=== PATIENT | male | born 1945 | race Caucasian/White ===

== ENCOUNTER 2019-01-23 19:19 | Emergency (ER) | payer MEDICARE, OTHER, SELFPAY ==
[2019-01-23 19:26] VITALS: BP 151/75; PULSE 90; RESP 18; TEMP 37.1; O2SAT 91
--- NOTE | 2019-01-23 19:27 | DI.CT.S_ITS ---
PROCEDURE: CT ANGIO CHEST PE PROTOCOL INDICATIONS: syncope, hx pe TECHNIQUE: After the administration of intravenous contrast, 2 mm thick sections acquired from the pulmonary apices to the posterior costophrenic angles. 3-dimensional maximum intensity projection (MIP) coronal and sagittal reformats were then acquired through the thorax. For radiation dose reduction, the following was used: automated exposure control, adjustment of mA and/or kV according to patient size. COMPARISON: None. FINDINGS: Image quality: Excellent. Pulmonary arteries: Pulmonary arteries are normal in size, and demonstrate no intraluminal filling defects to suggest central pulmonary embolism. Lungs and pleura: There is a masslike density in the extreme right lung base with questionably spiculated margins extending to the pleural surface measuring approximately 3.0 x 1.1 cm on image 4/5. It may potentially represent a tiny focal infiltrate or scarring. A small neoplasm is not excluded. Lungs are otherwise clear. No pleural effusions or pneumothorax. Central and peripheral airways are patent. Mediastinum: Heart size is normal, without pericardial effusion. No mediastinal or hilar adenopathy. Thoracic aorta is normal in caliber and enhancement. Esophagus is normal in caliber, without hiatal hernia. Bones and chest wall: No suspicious bony lesions. Ribs and thoracic spine appear intact throughout. Thyroid gland is unremarkable the. No axillary or supraclavicular adenopathy. Abdomen: Visualized upper abdominal solid organs appear normal in the early arterial phase of enhancement. Multiple large left renal cysts, the largest of which measures 10 cm. IMPRESSION: 1. No evidence of pulmonary emboli. 2. 3.0 x 1.1 cm masslike density in the extreme right lung base. Findings may represent scarring versus small focal infiltrate. A small neoplasm is not excluded. Comment: If possible, comparison with a prior chest CT would be helpful. If not, short interval followup CT, and approximately 2 or 3 months is suggested. If the lesion remains at that time, PET/CT may be indicated. Dictated by: Tyrone Rose M.D. on 01/23/2019 at 20:33 Approved by: Tyrone Rose M.D. on 01/23/2019 at 20:39
--- NOTE | 2019-01-23 19:30 | DI.CT.S_ITS ---
PROCEDURE: CT HEAD/BRAIN WO CON INDICATIONS: syncope TECHNIQUE: Noncontrast 4.5 mm thick angled axial sections acquired from the foramen magnum to the vertex, with coronal and sagittal reformats. For radiation dose reduction, the following was used: automated exposure control, adjustment of mA and/or kV according to patient size. COMPARISON: None. FINDINGS: Image quality: Excellent. CSF spaces: Basal cisterns are patent. No extra-axial fluid collections. Ventricles are normal in size and shape. Brain: No midline shift. No intracranial masses or hemorrhage. Ansari-white matter interface is normal. Skull and face: Calvarium and visualized facial bones are intact, without suspicious lesions. Sinuses: Visualized sinuses and mastoids are clear. IMPRESSION: Negative head CT with no evidence of acute stroke, hemorrhage, or mass. Dictated by: Tyrone Rose M.D. on 01/23/2019 at 20:32 Approved by: Tyrone Rose M.D. on 01/23/2019 at 20:32
[2019-01-23 19:40] LABS: Add Manual Diff / Slide Review NO; Basophils Absolute Auto 0 /uL (0-100); Basophils Percent Auto 0.4 % (0-2); Eosinophils Absolute Auto 100 /uL (0-450); Eosinophils Percent Auto 1.3 % (2-4); Hematocrit 44.7 % (41-53); Hemoglobin 15.2 g/dL (13.5-17.5); Lymphocytes Absolute Auto 1100 /uL (1100-4500); Lymphocytes Percent Auto 13.9 % (25-40); Mean Corpuscular Hemoglobin 31.5 PG (26-34); Mean Corpuscular Volume 92.5 fL (80-100); Monocytes Absolute Auto 700 /uL (0-900); Monocytes Percent Auto 8.7 % (3-14); Neutrophils Absolute Auto 5800 /uL (1500-7000); Neutrophils Percent Auto 75.7 % (50-75); Platelet Count 195 X10^3/uL (150-400); Red Blood Cell Count 4.83 X10^6/uL (4.5-5.9); Red Cell Distribution Width 12.6 % (11.6-14.8); White Blood Cell Count 7.6 X10^3/uL (4.5-11.0)
[2019-01-23] MEDS: SODIUM CHLORIDE 0.9% 1,000 ML 1000 ML IV (19:46)
[2019-01-23 19:56] LABS: Alanine Aminotransferase 23 IU/L (21-72); Albumin 4.2 g/dL (3.5-5.0); Albumin Globulin Ratio 1.6 (1.0-2.8); Alkaline Phosphatase 49 U/L (38-126); Aspartate Aminotransferase 35 IU/L (17-59); BUN Creatinine Ratio 14.5 (6-22); Bilirubin Total 1.1 mg/dL (0.2-1.3); Blood Urea Nitrogen 16 mg/dL (9-20); Calcium 9.7 mg/dL (8.4-10.2); Carbon Dioxide 26 mmol/L (22-32); Chloride 106 mmol/L (98-107); Creatine Kinase 219 U/L (55-170); Estimated Glomerular Filt Rate > 60.0 mL/min (>60); Globulin 2.6 g/dL (1.7-4.1); Glucose 94 mg/dL (80-110); HEMOLYSIS < 15 (0-50); Potassium 4.3 mmol/L (3.4-5.1); Sodium 142 mmol/L (137-145); Total Protein 6.8 g/dL (6.3-8.2)
[2019-01-23 20:08] LABS: B Type Natriuretic Peptide < 100 (<100); Troponin I < 0.012 ng/mL (0.01-0.034)
[2019-01-23 20:11] LABS: Creatine Kinase MB 2.23 ng/mL (<2.37)
[2019-01-23 20:23] LABS: Ethanol (ETOH) 47 mg/dL
--- NOTE | 2019-01-23 20:29 | ED.SYNCOPE ---
HPI - Syncope <JASMIN Odonnell - Last Filed: 01/23/19 21:04> General Chief Complaint: Syncope Stated Complaint: R leg cramp,passed out at dinner Time Seen by Provider: 01/23/19 19:21 Source: patient and family Mode of arrival: ambulatory Limitations: no limitations History of Present Illness HPI narrative: The patient is a 73-year-old male former smoker with history of PE who presents after having a syncopal event during dinner. His witnessed it and states he was out for at least 30 seconds. He states that just prior to this he had a right hamstring cramp, stood up and felt better. He denies any chest pain, shortness of breath, fever, abdominal pain nausea vomiting or diarrhea. He denies any weakness or incontinence. He states that he has been working on his boat all day in the sun without drinking water, but did have a few beers with dinner. Related Data Home Medications Medication Instructions Recorded Confirmed aspirin 81 mg PO DAILY 01/23/19 01/23/19 atorvastatin 20 mg PO DAILY 01/23/19 01/23/19 Allergies Allergy/AdvReac Type Severity Reaction Status Date / Time erythromycin base Allergy Intermediate Rash Verified 01/23/19 19:30 Review of Systems <JASMIN Odonnell - Last Filed: 01/23/19 21:04> Review of Systems GENERAL: Denies chills, fatigue, malaise, fever, sweats. HEENT: Denies sinus pain, ear pain, sore throat, difficulty swallowing, dizziness. RESPIRATORY: Denies dyspnea, cough, wheezing, hemoptysis, sputum. CARDIOVASCULAR: See HPI GASTROINTESTINAL: Denies nausea, vomiting, abdominal pain, diarrhea, constipation, melena. : Denies dysuria, frequency, incontinence, hematuria, urinary retention. MUSCULOSKELETAL: denies weakness, joint pain, or bony pain SKIN: Denies rash, skin lesions, or other NEUROLOGIC: See HPI PSYCHIATRIC: No concerning psychosocial issues. 12 point review of systems is negative except for those stated above PFSH <JASMIN Odonnell - Last Filed: 01/23/19 21:04> Medical History DVT (deep venous thrombosis) (Acute) High cholesterol (Acute) (Acute) Pulmonary embolism (Acute) Social History Smoking Status: Former smoker Social History Smoking Status: Former smoker Exam <JASMIN Odonnell - Last Filed: 01/23/19 21:04> Narrative Exam Narrative: GENERAL: pleasant gentleman lying on stretcher in no acute distress HEAD: Atraumatic. Normocephalic. No temporal or scalp tenderness. EYES: Pupils equal round and reactive. Extraocular motions intact. No scleral icterus. No injection or drainage. ENT: Nose without bleeding, purulent drainage or septal hematoma. Throat without erythema, tonsillar hypertrophy or exudate. Uvula midline. Airway patent. NECK: Trachea midline. No JVD or lymphadenopathy. Supple, nontender, no meningeal signs. CARDIOVASCULAR: Regular rate and rhythm without murmurs, gallops, or rubs. RESPIRATORY: Clear to auscultation. Breath sounds equal bilaterally. No wheezes, rales, or rhonchi. No cough. No increased respiratory effort. GASTROINTESTINAL: Abdomen soft, non-tender, nondistended. No hepato-splenomegaly, or palpable masses. No guarding. EXTREMITIES: No clubbing, cyanosis, or edema. No joint tenderness, effusion, or edema noted. BACK: Nontender without deformity or crepitance. No flank tenderness. NEURO: AOx3. Strength is equal upper and lower extremities bilaterally. Stable gait. No gross cranial nerve deficit. SKIN: No rash or erythema. Initial Vital Signs Initial Vital Signs: Vital Signs Temperature 98.8 F 01/23/19 19:26 Pulse Rate 90 01/23/19 19:26 Respiratory Rate 18 01/23/19 19:26 Blood Pressure 151/75 H 01/23/19 19:26 Pulse Oximetry 91 01/23/19 19:26 <Sergo Peña DO - Last Filed: 01/24/19 00:15> Initial Vital Signs Initial Vital Signs: Vital Signs Temperature 98.8 F 01/23/19 19:26 Pulse Rate 90 01/23/19 19:26 Respiratory Rate 18 01/23/19 19:26 Blood Pressure 151/75 H 01/23/19 19:26 Pulse Oximetry 91 01/23/19 19:26 Course <JASMIN Odonnell - Last Filed: 01/23/19 21:04> Orders Ordered: ED Orders 01/23/19 19:27 CT angio chest PE protocol Stat EKG-12 Lead Stat 01/23/19 19:30 CT head/brain wo con Stat B Type Natriuretic Peptide Stat Complete Blood Count AUTO DIFF Stat Comprehensive Metabolic Panel Stat Ethanol (ETOH) Stat Troponin & CK Cardiac Panel Stat Discontinued Medications Sodium Chloride (Normal Saline 0.9%) 1,000 mls @ 1,000 mls/hr IV BOLUS ONE Stop: 01/23/19 20:26 Last Infusion: 01/23/19 21:02 Dose: 0 mls/hr Admin: 01/23/19 19:46 Dose: 1,000 mls/hr Vital Signs - 8 hr 01/23/19 19:26 01/23/19 20:44 Temperature 98.8 F Pulse Rate 90 68 Respiratory Rate 18 19 Blood Pressure 151/75 H Blood Pressure [Left Arm] 126/61 Pulse Oximetry 91 94 <Sergo Peña DO - Last Filed: 01/24/19 00:15> Orders Ordered: ED Orders 01/23/19 19:27 CT angio chest PE protocol Stat EKG-12 Lead Stat 01/23/19 19:30 CT head/brain wo con Stat B Type Natriuretic Peptide Stat Complete Blood Count AUTO DIFF Stat Comprehensive Metabolic Panel Stat Ethanol (ETOH) Stat Troponin & CK Cardiac Panel Stat Discontinued Medications Sodium Chloride (Normal Saline 0.9%) 1,000 mls @ 1,000 mls/hr IV BOLUS ONE Stop: 01/23/19 20:26 Last Infusion: 01/23/19 21:02 Dose: 0 mls/hr Admin: 01/23/19 19:46 Dose: 1,000 mls/hr Vital Signs - 8 hr 01/23/19 19:26 01/23/19 20:44 Temperature 98.8 F Pulse Rate 90 68 Respiratory Rate 18 19 Blood Pressure 151/75 H Blood Pressure [Left Arm] 126/61 Pulse Oximetry 91 94 MDM - Syncope <JASMIN Odonnell - Last Filed: 01/23/19 21:04> Lab Data Result diagrams: 01/23/19 19:30 01/23/19 19:30 Lab Results 01/23/19 01/23/19 01/23/19 Range/Units 19:30 19:30 19:30 WBC 7.6 (4.5-11.0) X10^3/uL RBC 4.83 (4.5-5.9) X10^6/uL Hgb 15.2 (13.5-17.5) g/dL Hct 44.7 (41-53) % MCV 92.5 (80-100) fL MCH 31.5 (26-34) PG MCHC 34.0 (30-36) % RDW 12.6 (11.6-14.8) % Plt Count 195 (150-400) X10^3/uL Neut % (Auto) 75.7 H (50-75) % Lymph % (Auto) 13.9 L (25-40) % [place] % (Auto) 8.7 (3-14) % Eos % (Auto) 1.3 L (2-4) % Baso % (Auto) 0.4 (0-2) % Neut # (Auto) 5800 (1613-0364) /uL Lymph # (Auto) 1100 (7730-8693) /uL [place] # (Auto) 700 (0-900) /uL Eos # (Auto) 100 (0-450) /uL Baso # (Auto) 0 (0-100) /uL Sodium 142 (137-145) mmol/L Potassium 4.3 (3.4-5.1) mmol/L Chloride 106 (98-107) mmol/L Carbon Dioxide 26 (22-32) mmol/L BUN 16 (9-20) mg/dL Creatinine 1.10 (0.66-1.25) mg/dL Estimated GFR > 60.0 (>60) mL/min BUN/Creatinine Ratio 14.5 (6-22) Glucose 94 (80-110) mg/dL Calcium 9.7 (8.4-10.2) mg/dL Total Bilirubin 1.1 (0.2-1.3) mg/dL AST 35 (17-59) IU/L ALT 23 (21-72) IU/L Alkaline Phosphatase 49 (38-126) U/L Total Creatine Kinase 219 H (55-170) U/L CK-MB (CK-2) 2.23 (<2.37) ng/mL CK-MB (CK-2) Rel Index 1.0 L (1.5-5.0) % Troponin I < 0.012 (0.01-0.034) ng/mL B-Natriuretic Peptide < 100 (<100) Total Protein 6.8 (6.3-8.2) g/dL Albumin 4.2 (3.5-5.0) g/dL Globulin 2.6 (1.7-4.1) g/dL Albumin/Globulin Ratio 1.6 (1.0-2.8) Ethyl Alcohol 47 mg/dL Imaging Data CT scan - head: Radiologist's impression: [address] [address] [address] Scan Report Signed Patient: Milton Root R#: [id number] : 1945cct:[id number] Age/Sex: 73 / MDate of Service: 01/23/19 Loc: ED Accession Number: [id number] Procedure: CT head/brain wo con Ordering Provider: Macie Xavier PROCEDURE: CT HEAD/BRAIN WO CON INDICATIONS: syncope TECHNIQUE: Noncontrast 4.5 mm thick angled axial sections acquired from the foramen magnum to the vertex, with coronal and sagittal reformats. For radiation dose reduction, the following was used: automated exposure control, adjustment of mA and/or kV according to patient size. COMPARISON: None. FINDINGS: Image quality: Excellent. CSF spaces: Basal cisterns are patent. No extra-axial fluid collections. Ventricles are normal in size and shape. Brain: No midline shift. No intracranial masses or hemorrhage. Ansari-white matter interface is normal. Skull and face: Calvarium and visualized facial bones are intact, without suspicious lesions. Sinuses: Visualized sinuses and mastoids are clear. IMPRESSION: Negative head CT with no evidence of acute stroke, hemorrhage, or mass. Dictated by: Tyrone Rose M.D. on 01/23/2019 at 20:32 Approved by: Tyrone Rose M.D. on 01/23/2019 at 20:32 CTPA: Radiologist's impression: 3 JASMIN Odonnell Find Patient Imaging Milton Root 73 M 1945 ACTIVITY DATE EXAM STATUS AUTHOR 01/23/19 19:30 Signed Tyrone Rose 01/23/19 19:27 Signed Tyrone Rose [address] [address] [address] Scan Report Signed Patient: Milton Root R#: [id number] : 7Acct:[id number] Age/Sex: 73 / MDate of Service: 01/23/19 Loc: ED Accession Number: [id number] Procedure: CT angio chest PE protocol Ordering Provider: Macie Xavier [facility] PROCEDURE: CT ANGIO CHEST PE PROTOCOL INDICATIONS: syncope, hx pe TECHNIQUE: After the administration of intravenous contrast, 2 mm thick sections acquired from the pulmonary apices to the posterior costophrenic angles. 3-dimensional maximum intensity projection (MIP) coronal and sagittal reformats were then acquired through the thorax. For radiation dose reduction, the following was used: automated exposure control, adjustment of mA and/or kV according to patient size. COMPARISON: None. FINDINGS: Image quality: Excellent. Pulmonary arteries: Pulmonary arteries are normal in size, and demonstrate no intraluminal filling defects to suggest central pulmonary embolism. Lungs and pleura: There is a masslike density in the extreme right lung base with questionably spiculated margins extending to the pleural surface measuring approximately 3.0 x 1.1 cm on image 4/5. It may potentially represent a tiny focal infiltrate or scarring. A small neoplasm is not excluded. Lungs are otherwise clear. No pleural effusions or pneumothorax. Central and peripheral airways are patent. Mediastinum: Heart size is normal, without pericardial effusion. No mediastinal or hilar adenopathy. Thoracic aorta is normal in caliber and enhancement. Esophagus is normal in caliber, without hiatal hernia. Bones and chest wall: No suspicious bony lesions. Ribs and thoracic spine appear intact throughout. Thyroid gland is unremarkable the. No axillary or supraclavicular adenopathy. Abdomen: Visualized upper abdominal solid organs appear normal in the early arterial phase of enhancement. Multiple large left renal cysts, the largest of which measures 10 cm. IMPRESSION: 1. No evidence of pulmonary emboli. 2. 3.0 x 1.1 cm masslike density in the extreme right lung base. Findings may represent scarring versus small focal infiltrate. A small neoplasm is not excluded. Comment: If possible, comparison with a prior chest CT would be helpful. If not, short interval followup CT, and approximately 2 or 3 months is suggested. If the lesion remains at that time, PET/CT may be indicated. Dictated by: Tyrone Rose M.D. on 01/23/2019 at 20:33 Approved by: Tyrone Rose M.D. on 01/23/2019 at 20:39 ECG Data Interpretation: Sinus rhythm. Ventricular rate 72. No ectopy noted. No ST elevation or depression noted. First-degree AV block noted pr 227 MDM Narrative Medical decision making narrative: The patient is a 73-year-old male who presents with a chief complaint of syncope during dinner. He denies any complaint upon arrival to the emergency department. He has a negative troponin, normal EKG, normal head CT. Given his history of a PE, I obtained a CT PA which does not show blood clot. It does show concern for mass or scarring in the right lower lobe, which the patient is already aware of. He states that this is scarring from his previous PE. He was given IV fluids. For after his initial negative troponin, he requested to go home. I discussed that I usually do a 2nd troponin in order to fully rule out a cardiac event. The patient states that he is willing to take this risk and does not want to wait for a 2nd troponin. I discussed at length coming back to the emergency department for chest pain, shortness of breath, concern of heart attack or stroke or repeat syncope and the patient stated understanding. The patient states understanding that I cannot fully rule out a heart attack or serious cardiac event. He states he will follow up with his PCP when he was home. Discussed coming back to the ER if needed.n <Sergo Peña, DO - Last Filed: 01/24/19 00:15> Lab Data Lab Results 01/23/19 01/23/19 01/23/19 Range/Units 19:30 19:30 19:30 WBC 7.6 (4.5-11.0) X10^3/uL RBC 4.83 (4.5-5.9) X10^6/uL Hgb 15.2 (13.5-17.5) g/dL Hct 44.7 (41-53) % MCV 92.5 (80-100) fL MCH 31.5 (26-34) PG MCHC 34.0 (30-36) % RDW 12.6 (11.6-14.8) % Plt Count 195 (150-400) X10^3/uL Neut % (Auto) 75.7 H (50-75) % Lymph % (Auto) 13.9 L (25-40) % [place] % (Auto) 8.7 (3-14) % Eos % (Auto) 1.3 L (2-4) % Baso % (Auto) 0.4 (0-2) % Neut # (Auto) 5800 (0228-9475) /uL Lymph # (Auto) 1100 (4554-5814) /uL [place] # (Auto) 700 (0-900) /uL Eos # (Auto) 100 (0-450) /uL Baso # (Auto) 0 (0-100) /uL Sodium 142 (137-145) mmol/L Potassium 4.3 (3.4-5.1) mmol/L Chloride 106 (98-107) mmol/L Carbon Dioxide 26 (22-32) mmol/L BUN 16 (9-20) mg/dL Creatinine 1.10 (0.66-1.25) mg/dL Estimated GFR > 60.0 (>60) mL/min BUN/Creatinine Ratio 14.5 (6-22) Glucose 94 (80-110) mg/dL Calcium 9.7 (8.4-10.2) mg/dL Total Bilirubin 1.1 (0.2-1.3) mg/dL AST 35 (17-59) IU/L ALT 23 (21-72) IU/L Alkaline Phosphatase 49 (38-126) U/L Total Creatine Kinase 219 H (55-170) U/L CK-MB (CK-2) 2.23 (<2.37) ng/mL CK-MB (CK-2) Rel Index 1.0 L (1.5-5.0) % Troponin I < 0.012 (0.01-0.034) ng/mL B-Natriuretic Peptide < 100 (<100) Total Protein 6.8 (6.3-8.2) g/dL Albumin 4.2 (3.5-5.0) g/dL Globulin 2.6 (1.7-4.1) g/dL Albumin/Globulin Ratio 1.6 (1.0-2.8) Ethyl Alcohol 47 mg/dL Discharge Plan Departure Patient Disposition: Home Clinical Impression: Syncope Qualifiers: Syncope type: unspecified Qualified Code(s): R55 - Syncope and collapse Discharge Date/Time: 06/12/19 21:09 Interventions: ED Discharge Assessment Last Done: 01/23/19 21:08 Instructions: DI for Syncope in Adults (Fainting) Activity Restrictions/Additional Instructions: Your workup today came back negative for any pulmonary embolism. You have elected to leave prior to year 2nd set of lab work being done, and therefore understand that I cannot fully rule out a cardiac event. Please come back to the emergency department for any acute concerns such as chest pain, shortness of breath repeat syncope. Please rest and push fluids. Please follow up with your primary care provider. Prescriptions: No Action atorvastatin 20 mg tablet 20 mg PO DAILY RF: 0 aspirin 81 mg Tablet,Chewable 81 mg PO DAILY RF: 0 <Sergo Peña DO - Last Filed: 01/24/19 00:15> [facility] Attending Ирина Attestation: I was immediately available in the department for consultation. Documentation has been reviewed. I agree with assessment and plan.
--- NOTE | 2019-01-23 20:32 | ED_ITS ---
HPI - Syncope <JASMIN Odonnell - Last Filed: 01/23/19 21:04> General Chief Complaint: Syncope Stated Complaint: R leg cramp,passed out at dinner Time Seen by Provider: 01/23/19 19:21 Source: patient and family Mode of arrival: ambulatory Limitations: no limitations History of Present Illness HPI narrative: The patient is a 73-year-old male former smoker with history of PE who presents after having a syncopal event during dinner. His witnessed it and states he was out for at least 30 seconds. He states that just prior to this he had a right hamstring cramp, stood up and felt better. He denies any chest pain, shortness of breath, fever, abdominal pain nausea vomiting or d iarrhea. He denies any weakness or incontinence. He states that he has been working on his boat all day in the sun without drinking water, but did have a few beers with dinner. Related Data Home Medications Medication Instructions Recorded Confirmed aspirin 81 mg PO DAILY 01/23/19 01/23/19 atorvastatin 20 mg PO DAILY 01/23/19 01/23/19 Allergies Allergy/AdvReac Type Severity Reaction Status Date / Time erythromycin base Allergy Intermediate Rash Verified 01/23/19 19:30 Review of Systems <JASMIN Odonnell - Last Filed: 01/23/19 21:04> Review of Systems GENERAL: Denies chills, fatigue, malaise, fever, sweats. HEENT: Denies sinus pain, ear pain, sore throat, difficulty swallowing, dizzine ss. RESPIRATORY: Denies dyspnea, cough, wheezing, hemoptysis, sputum. CARDIOVASCULAR: See HPI GASTROINTESTINAL: Denies nausea, vomiting, abdominal pain, diarrhea, constipation, melena. : Denies dysuria, frequency, incontinence, hematuria, urinary retention. MUSCULOSKELETAL: denies weakness, joint pain, or bony pain SKIN: Denies rash, skin lesions, or other NEUROLOGIC: See HPI PSYCHIATRIC: No concerning psychosocial issues. 12 point review of systems is negative except for those stated above PFSH <JASMIN Odonnell - Last Filed: 01/23/19 21:04> Medical History DVT (deep venous thrombosis) (Acute) High cholesterol (Acute) (Acute) Pulmonary embolism (Acute) Social History Smoking Status: Former smoker Social History Smoking Status: Former smoker Exam <JASMIN Odonnell - Last Filed: 01/23/19 21:04> Narrative Exam Narrative: GENERAL: pleasant gentleman lying on stretcher in no acute distress HEAD: Atraumatic. Normocephalic. No temporal or scalp tenderness. EYES: Pupils equal round and reactive. Extraocular motions intact. No scleral icterus. No injection or drainage. ENT: Nose without bleeding, purulent drainage or septal hematoma. Throat without erythema, tonsillar hypertrophy or exudate. Uvula midline. Airway patent. NECK: Trachea midline. No JVD or lymphadenopathy. Supple, nontender, no meningeal signs. CARDIOVASCULAR: Regular rate and rhythm without murmurs, gallops, or rubs. RESPIRATORY: Clear to auscultation. Breath sounds equal bilaterally. No wheezes, rales, or rhonchi. No cough. No increased respiratory effort. GASTROINTESTINAL: Abdomen soft, non-tender, nondistended. No hepato-sp lenomegaly, or palpable masses. No guarding. EXTREMITIES: No clubbing, cyanosis, or edema. No joint tenderness, effusion, or edema noted. BACK: Nontender without deformity or crepitance. No flank tenderness. NEURO: AOx3. Strength is equal upper and lower extremities bilaterally. Stable gait. No gross cranial nerve deficit. SKIN: No rash or erythema. Initial Vital Signs Initial Vital Signs: Vital Signs Temperature 98.8 F 01/23/19 19:26 Pulse Rate 90 01/23/19 19:26 Respiratory Rate 18 01/23/19 19:26 Blood Pressure 151/75 H 01/23/19 19:26 Pulse Oximetry 91 01/23/19 19:26 <Sergo Peña DO - Last Filed: 01/24/19 00:15> Initial Vital Signs Initial Vital Signs: Vital Signs Temperature 98.8 F 01/23/19 19:26 Pulse Rate 90 01/23/19 19:26 Respiratory Rate 18 01/23/19 19:26 Blood Pressure 151/75 H 01/23/19 19:26 Pulse Oximetry 91 01/23/19 19:26 Course <JASMIN Odonnell - Last Filed: 01/23/19 21:04> Orders Ordered: ED Orders 01/23/19 19:27 CT angio chest PE protocol Stat EKG-12 Lead Stat 01/23/19 19:30 CT head/brain wo con Stat B Type Natriuretic Peptide Stat Complete Blood Count AUTO DIFF Stat Comprehensive Metabolic Panel Stat Ethanol (ETOH) Stat Troponin & CK Cardiac Panel Stat Discontinued Medications Sodium Chloride (Normal Saline 0.9%) 1,000 mls @ 1,000 mls/hr IV BOLUS ONE Stop: 01/23/19 20:26 Last Infusion: 01/23/19 21:02 Dose: 0 mls/hr Admin: 01/23/19 19:46 Dose: 1,000 mls/hr Vital Signs - 8 hr 01/23/19 19:26 01/23/19 20:44 Temperature 98.8 F Pulse Rate 90 68 Respiratory Rate 18 19 Blood Pressure 151/75 H Blood Pressure [Left Arm] 126/61 Pulse Oximetry 91 94 <Sergo Peña DO - Last Filed: 01/24/19 00:15> Orders Ordered: ED Orders 01/23/19 19:27 CT angio chest PE protocol Stat EKG-12 Lead Stat 01/23/19 19:30 CT head/brain wo con Stat B Type Natriuretic Peptide Stat Complete Blood Count AUTO DIFF Stat Comprehensive Metabolic Panel Stat Ethanol (ETOH) Stat Troponin & CK Cardiac Panel Stat Discontinued Medications Sodium Chloride (Normal Saline 0.9%) 1,000 mls @ 1,000 mls/hr IV BOLUS ONE Stop: 01/23/19 20:26 Last Infusion: 01/23/19 21:02 Dose: 0 mls/hr Admin: 01/23/19 19:46 Dose: 1,000 mls/hr Vital Signs - 8 hr 01/23/19 19:26 01/23/19 20:44 Temperature 98.8 F Pulse Rate 90 68 Respiratory Rate 18 19 Blood Pressure 151/75 H Blood Pressure [Left Arm] 126/61 Pulse Oximetry 91 94 MDM - Syncope <JASMIN Odonnell - Last Filed: 01/23/19 21:04> Lab Data Result diagrams: 01/23/19 19:30 01/23/19 19:30 Lab Results 01/23/19 01/23/19 01/23/19 Range/Units 19:30 19:30 19:30 WBC 7.6 (4.5-11.0) X10^3/uL RBC 4.83 (4.5-5.9) X10^6/uL Hgb 15.2 (13.5-17.5) g/dL Hct 44.7 (41-53) % MCV 92.5 (80-100) fL MCH 31.5 (26-34) PG MCHC 34.0 (30-36) % RDW 12.6 (11.6-14.8) % Plt Count 195 (150-400) X10^3/uL Neut % (Auto) 75.7 H (50-75) % Lymph % (Auto) 13.9 L (25-40) % Winston % (Auto) 8.7 (3-14) % Eos % (Auto) 1.3 L (2-4) % Baso % (Auto) 0.4 (0-2) % Neut # (Auto) 5800 (7455-2256) /uL Lymph # (Auto) 1100 (1788-9346) /uL Winston # (Auto) 700 (0-900) /uL Eos # (Auto) 100 (0-450) /uL Baso # (Auto) 0 (0-100) /uL Sodium 142 (137-145) mmol/L Potassium 4.3 (3.4-5.1) mmol/L Chloride 106 (98-107) mmol/L Carbon Dioxide 26 (22-32) mmol/L BUN 16 (9-20) mg/dL Creatinine 1.10 (0.66-1.25) mg/dL Estimated GFR > 60.0 (>60) mL/min BUN/Creatinine Ratio 14.5 (6-22) Glucose 94 (80-110) mg/dL Calcium 9.7 (8.4-10.2) mg/dL Total Bilirubin 1.1 (0.2-1.3) mg/dL AST 35 (17-59) IU/L ALT 23 (21-72) IU/L Alkaline Phosphatase 49 (38-126) U/L Total Creatine Kinase 219 H (55-170) U/L CK-MB (CK-2) 2.23 (<2.37) ng/mL CK-MB (CK-2) Rel Index 1.0 L (1.5-5.0) % Troponin I < 0.012 (0.01-0.034) ng/mL B-Natriuretic Peptide < 100 (<100) Total Protein 6.8 (6.3-8.2) g/dL Albumin 4.2 (3.5-5.0) g/dL Globulin 2.6 (1.7-4.1) g/dL Albumin/Globulin Ratio 1.6 (1.0-2.8) Ethyl Alcohol 47 mg/dL Imaging Data CT scan - head: Radiologist's impression: [address] [address] [address] Scan Report Signed Patient: Milton Root R#: [id number] : 1945cct:[id number] Age/Sex: 73 / MDate of Service: 01/23/19 Loc: ED Accession Number: [id number] Procedure: CT head/brain wo con Ordering Provider: Macie Xavier PROCEDURE: CT HEAD/BRAIN WO CON INDICATIONS: syncope TECHNIQUE: Noncontrast 4.5 mm thick angled axial sections acquired from the foramen magnum to the vertex, with coronal and sagittal reformats. For radiation dose reduction, the following was used: automated exposure control, adjustment of mA and/or kV according to patient size. COMPARISON: None. FINDINGS: Image quality: Excellent. CSF spaces: Basal cisterns are patent. No extra-axial fluid collections. Ventricles are normal in size and shape. Brain: No midline shift. No intracranial masses or hemorrhage. Ansari-white matter interface is normal. Skull and face: Calvarium and visualized facial bones are intact, without suspicious lesions. Sinuses: Visualized sinuses and mastoids are clear. IMPRESSION: Negative head CT with no evidence of acute stroke, hemorrhage, or mass. Dictated by: Tyrone Rose M.D. on 01/23/2019 at 20:32 Approved by: Tyrone Rose M.D. on 01/23/2019 at 20:32 CTPA: Radiologist's impression: 3 JASMIN Odonnell Find Patient Imaging Milton Root 73 M 1945 ACTIVITY DATE EXAM STATUS AUTHOR 01/23/19 19:30 Signed Tyrone Rose 01/23/19 19:27 Signed Tyrone Rose [address] [address] [address] Scan Report Signed Patient: Milton Root R#: [id number] : 7Acct:[id number] Age/Sex: 73 / MDate of Service: 01/23/19 Loc: ED Accession Number: [id number] Procedure: CT angio chest PE protocol Ordering Provider: Macie Xavier [facility] PROCEDURE: CT ANGIO CHEST PE PROTOCOL INDICATIONS: syncope, hx pe TECHNIQUE: After the administration of intravenous contrast, 2 mm thick sections acquired from the pulmonary apices to the posterior costophrenic angles. 3-dimensional maximum intensity projection (MIP) coronal and sagittal reformats were then acquired through the thorax. For radiation dose reduction, the following was used: automated exposure control, adjustment of mA and/or kV according to patient size. COMPARISON: None. FINDINGS: Image quality: Excellent. Pulmonary arteries: Pulmonary arteries are normal in size, and demonstrate no intraluminal filling defects to suggest central pulmonary embolism. Lungs and pleura: There is a masslike density in the extreme right lung base with questionably spiculated margins extending to the pleural surface measuring approximately 3.0 x 1.1 cm on image 4/5. It may potentially represent a tiny focal infiltrate or scarring. A small neoplasm is not excluded. Lungs are otherwise clear. No pleural effusions or pneumothorax. Central and peripheral airways are patent. Mediastinum: Heart size is normal, without pericardial effusion. No mediastinal or hilar adenopathy. Thoracic aorta is normal in caliber and enhancement. Esophagus is normal in caliber, without hiatal hernia. Bones and chest wall: No suspicious bony lesions. Ribs and thoracic spine appear intact throughout. Thyroid gland is unremarkable the. No axillary or supraclavicular adenopathy. Abdomen: Visualized upper abdominal solid organs appear normal in the early arterial phase of enhancement. Multiple large left renal cysts, the largest of which measures 10 cm. IMPRESSION: 1. No evidence of pulmonary emboli. 2. 3.0 x 1.1 cm masslike density in the extreme right lung base. Findings may represent scarring versus small focal infiltrate. A small neoplasm is not excluded. Comment: If possible, comparison with a prior chest CT would be helpful. If not, short interval followup CT, and approximately 2 or 3 months is suggested. If the lesion remains at that time, PET/CT may be indicated. Dictated by: Tyrone Rose M.D. on 01/23/2019 at 20:33 Approved by: Tyrone Rose M.D. on 01/23/2019 at 20:39 ECG Data Interpretation: Sinus rhythm. Ventricular rate 72. No ectopy noted. No ST elevation or depression noted. First-degree AV block noted pr 227 MDM Narrative Medical decision making narrative: The patient is a 73-year-old male who presents with a chief complaint of syncope during dinner. He denies any complaint upon arrival to the emergency department. He has a negative troponin, normal EKG, normal head CT. Given his history of a PE, I obtained a CT PA which does not show blood clot. It does show concern for mass or scarring in the right lower lobe, which the patient is already aware of. He states that this is scarring from his previous PE. He was given IV fluids. For after his initial negative troponin, he requested to go home. I discussed that I usually do a 2nd troponin in order to fully rule out a cardiac event. The patient states that he is willing to take this risk and does not want to wait for a 2nd troponin. I discussed at length coming back to the emergency department for chest pain, shortness of breath, concern of heart attack or stroke or repeat syncope and the patient stated understanding. The patient states understanding that I cannot fully rule out a heart attack or serious cardiac event. He states he will follow up with his PCP when he was home. Discussed coming back to the ER if needed.n <Sergo Peña, DO - Last Filed: 01/24/19 00:15> Lab Data Lab Results 01/23/19 01/23/19 01/23/19 Range/Units 19:30 19:30 19:30 WBC 7.6 (4.5-11.0) X10^3/uL RBC 4.83 (4.5-5.9) X10^6/uL Hgb 15.2 (13.5-17.5) g/dL Hct 44.7 (41-53) % MCV 92.5 (80-100) fL MCH 31.5 (26-34) PG MCHC 34.0 (30-36) % RDW 12.6 (11.6-14.8) % Plt Count 195 (150-400) X10^3/uL Neut % (Auto) 75.7 H (50-75) % Lymph % (Auto) 13.9 L (25-40) % Winston % (Auto) 8.7 (3-14) % Eos % (Auto) 1.3 L (2-4) % Baso % (Auto) 0.4 (0-2) % Neut # (Auto) 5800 (2022-6263) /uL Lymph # (Auto) 1100 (5325-0452) /uL Winston # (Auto) 700 (0-900) /uL Eos # (Auto) 100 (0-450) /uL Baso # (Auto) 0 (0-100) /uL Sodium 142 (137-145) mmol/L Potassium 4.3 (3.4-5.1) mmol/L Chloride 106 (98-107) mmol/L Carbon Dioxide 26 (22-32) mmol/L BUN 16 (9-20) mg/dL Creatinine 1.10 (0.66-1.25) mg/dL Estimated GFR > 60.0 (>60) mL/min BUN/Creatinine Ratio 14.5 (6-22) Glucose 94 (80-110) mg/dL Calcium 9.7 (8.4-10.2) mg/dL Total Bilirubin 1.1 (0.2-1.3) mg/dL AST 35 (17-59) IU/L ALT 23 (21-72) IU/L Alkaline Phosphatase 49 (38-126) U/L Total Creatine Kinase 219 H (55-170) U/L CK-MB (CK-2) 2.23 (<2.37) ng/mL CK-MB (CK-2) Rel Index 1.0 L (1.5-5.0) % Troponin I < 0.012 (0.01-0.034) ng/mL B-Natriuretic Peptide < 100 (<100) Total Protein 6.8 (6.3-8.2) g/dL Albumin 4.2 (3.5-5.0) g/dL Globulin 2.6 (1.7-4.1) g/dL Albumin/Globulin Ratio 1.6 (1.0-2.8) Ethyl Alcohol 47 mg/dL Discharge Plan Departure Patient Disposition: Home Clinical Impression: Syncope Qualifiers: Syncope type: unspecified Qualified Code(s): R55 - Syncope and collapse Discharge Date/Time: 01/23/19 21:09 Interventions: ED Discharge Assessment Last Done: 01/23/19 21:08 Instructions: DI for Syncope in Adults (Fainting) Activity Restrictions/Additional Instructions: Your workup today came back negative for any pulmonary embolism. You have elected to leave prior to year 2nd set of lab work being done, and therefore understand that I cannot fully rule out a cardiac event. Please come back to the emergency department for any acute concerns such as chest pain, shortness of breath repeat syncope. Please rest and push fluids. Please follow up with your primary care provider. Prescriptions: No Action atorvastatin 20 mg tablet 20 mg PO DAILY RF: 0 aspirin 81 mg Tablet,Chewable 81 mg PO DAILY RF: 0 <Sergo Peña DO - Last Filed: 01/24/19 00:15> [facility] Attending Ирина Attestation: I was immediately available in the department for consultation. Documentation has been reviewed. I agree with assessment and plan.
[2019-01-23 20:44] VITALS: BP 126/61; PULSE 68; RESP 19; O2SAT 94
== END 2019-01-23 21:09 | disposition home or self-care (01) ==
PROVIDERS: Emergency Provider Nurse Practitioner Family
DX: R55 Syncope and collapse (principal); Z86.711 Personal history of pulmonary embolism
CPT/HCPCS: 36591; 70450; 71275; 80053; 80320; 82550; 82553; 83880; 84484; 85025; 93005; 96360; 99283; 99285; Q9967